=== PATIENT | female | born 1990 | race Caucasian/White ===

== ENCOUNTER 2019-01-25 16:35 | Emergency (ER) | payer MEDICAID ==
[~2019-01-25] VITALS: Ht 165.1 cm; Wt 92.0 kg
[2019-01-25 16:38] VITALS: BP 162/105
[2019-01-25] MEDS ORDERED: KETOROLAC 30 MG/1 ML ONE (17:13)
[2019-01-25] MEDS ORDERED: METHOCARBAMOL 750 MG TABLET ONE ×2 (17:13→17:15)
--- NOTE | 2019-01-25 17:19 | NUR ---
PATIENT TO X-RAY
[2019-01-25] MEDS ORDERED: KETOROLAC 30 MG/1 ML IM ONE (17:30)
[2019-01-25] MEDS ORDERED: METHOCARBAMOL 750 MG TABLET PO ONE (17:30)
--- NOTE | 2019-01-25 17:33 | NUR ---
PATIENT FROM RAD
== END 2019-01-25 18:20 | disposition home or self-care (01) ==
LOC: ED 18:14
DX: S39.012A Strain of muscle, fascia and tendon of lower back, initial encounter (principal); X58.XXXA Exposure to other specified factors, initial encounter; Y93.89 Activity, other specified; Y92.89 Other specified places as the place of occurrence of the external cause; Y99.8 Other external cause status
CPT/HCPCS: 72110; 96372; 99283; J1885; J7512